=== PATIENT | male | born 1990 | race Caucasian/White ===

== ENCOUNTER 2016-10-04 10:18 | Emergency (ER) | payer OTHER ==
[~2016-10-04] VITALS: Ht 180.3 cm; Wt 72.6 kg
[~2016-10-04 10:18] MED LIST: DOXYCYCLINE MO100 MG PO
[2016-10-04 12:00] LABS: ABSOLUTE BASOPHIL COUNT 0.1 /CUMM (0.0-0.2); ABSOLUTE EOSINOPHIL COUNT 0.2 /CUMM (0.0-0.7); ABSOLUTE GRANULOCYTE CT 4.8 /CUMM (1.4-6.5); ABSOLUTE LYMPH COUNT 1.7 /CUMM (1.2-3.4); ABSOLUTE MONOCYTE COUNT 0.6 /CUMM (0.10-0.60); BASOPHIL % 0.9 % (0.0-2.0); EOSINOPHIL % 2.8 % (0-5); GRANULOCYTE % 65.5 % (42.2-75.2); HEMATOCRIT 47.5 % (42-52); MEAN CORPUSCULAR HGB CONC 34.1 G/DL (33.0-37.0); MEAN CORPUSCULAR VOLUME 85.1 FL (80.0-94.0); PLATELET COUNT 254 /CUMM (130-400); RBC DISTRIBUTION WIDTH 12.5 % (11.5-14.5); RED BLOOD CELL CT 5.59 /CUMM (4.70-6.10); WHITE BLOOD CELL COUNT 7.4 /CUMM (4.8-10.8)
--- NOTE | 2016-10-04 12:05 | ED SYNCOPE COMPLAINT ---
History of Present Illness General Chief Complaint: Dizziness Stated Complaint: FAINT, DIZZINESS Source: patient Exam Limitations: no limitations Vital Signs & Intake/Output Vital Signs & Intake/Output Vital Signs Date Time Temp Pulse Resp B/P B/P Pulse O2 O2 Flow FiO2 Mean Ox Delivery Rate 10/04 1411 97.1 73 18 111/59 98 Room Air 10/04 1124 98 Room Air Room Air 10/04 1026 96.0 100 20 155/76 98 Room Air Room Air Allergies Coded Allergies: NO KNOWN ALLERGIES (09/08/12) Reconcile Medications DOXYCYCLINE MONOHYDRATE (Doxycycline Monohydrate) 100 MG CAPSULE 1 TAB PO BID CELLULITITS Triage Note: PT TO ED WITH C/O "DIZZINESS WHICH IS NOT A NEW THING, I HAVE VERTIGO AND MIGRAINES, I HAVE TROUBLE REMEMBERING SIMPLE THINGS LIKE MY PIN CODES". Triage Nurses Notes Reviewed? yes Timing: single episode today Precipitating Factors: lightheadedness Loss of Consciousness: no loss of consciousness HPI: 26-year-old male comes into emergency room for further evaluation of feeling faint earlier today. Patient reports that he was holding his child when suddenly he felt very faint, nauseous, sweaty, with some associated chest pain. Patient reports he had a laid down. Symptoms lasted for about 5-10 minutes. Patient reports that this is previously happened to him in the past. Denies any vomiting. Patient also reported some blurry vision with the symptoms. Nothing seems to make the symptoms better or worse. Denies any other associated symptoms. Patient reports that this is been happened to him more frequently lately. He has had symptoms like this on and off for many years but never this severe. Past History Travel History Traveled to [place] past 21 day No Medical History Any Pertinent Medical History? 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 No Review of Systems Review of Systems Constitutional: Reports: see HPI. EENTM: Reports: see HPI. Respiratory: Reports: see HPI. Cardiovascular: Reports: see HPI. GI: Reports: no symptoms. Genitourinary: Reports: no symptoms. Musculoskeletal: Reports: no symptoms. Skin: Reports: no symptoms. Neurological/Psychological: Reports: see HPI. All Other Systems: Reviewed and Negative Physical Exam Physical Exam General Appearance: well developed/nourished, no apparent distress, alert, awake Head: atraumatic, normal appearance Eyes: Bilateral: normal appearance, PERRL, EOMI. Ears, Nose, Throat: normal pharynx, normal ENT inspection, hearing grossly normal Neck: normal inspection, full range of motion Respiratory: normal breath sounds, chest non-tender, no respiratory distress Cardiovascular: regular rate/rhythm Back: normal inspection Extremities: normal inspection, normal range of motion, no edema Psychiatric: awake, alert, oriented x 3 Cranial Nerves: normal hearing, normal speech, PERRL Coordination/Gait: normal finger to nose, normal gait Motor/Sensory: no motor/sensory deficits Skin: intact, normal color Core Measures ACS in differential dx? No CVA/TIA Diagnosis: No Severe Sepsis Present: No Septic Shock Present: No Progress Differential Diagnosis: AMI, aortic dissection, aortic valve, drug induced syncope, hyperventilation, orthostatic syncope, other valvular disease, pacemaker malfunction, pericardial tamponade, pulmonary embolus, seizure, sick sinus syndrome, subarachnoid hem., TIA/CVA, vasodepressor syncope, ventricular tach/fib Plan of Care: Orders Procedure Date/time Status Telemetry/Chipper Feeder 10/04 1205 Active D-DIMER 10/04 1128 Complete TROPONIN LEVEL 10/04 1127 Complete MAGNESIUM 10/04 1127 Complete COMPREHENSIVE METABOLIC PANEL 10/04 1127 Complete CBC WITHOUT DIFFERENTIAL 10/04 1127 Complete EKG 10/04 1127 Active Laboratory Tests 10/04/16 1310: D-Dimer < 200 10/04/16 1150: Anion Gap 11, Estimated GFR > 60, BUN/Creatinine Ratio 20.0, Glucose 86, Calcium 9.4, Magnesium 2.0, Total Bilirubin 1.3, AST 25, ALT 43, Alkaline Phosphatase 51 , Troponin I < 0.01, Total Protein 7.2, Albumin 4.4, Globulin 2.8, Albumin/ Globulin Ratio 1.6, CBC w Diff NO MAN DIFF REQ, RBC 5.59, MCV 85.1, MCH 29.0, RDW 12.5, MPV 7.0 L, Gran % 65.5, Lymphocytes % 23.1, Monocytes % 7.7, Eosinophils % 2.8, Basophils % 0.9, Absolute Granulocytes 4.8, Absolute Lymphocytes 1.7, Absolute Monocytes 0.6, Absolute Eosinophils 0.2, Absolute Basophils 0.1, PUBS MCHC 34.1 10/04/16 1128: Magnesium Cancelled Diagnostic Imaging: Viewed by Me: CT Scan. Discussed w/RAD: CT Scan. Radiology Impression: SERVICE DATE: 10/04/16 EXAM TYPE: CAT - CT HEAD WO IV CONTRAST EXAMINATION: CT HEAD WITHOUT CONTRAST CLINICAL INFORMATION: Near syncope, headaches. COMPARISON: None TECHNIQUE: Contiguous axial imaging was performed from the skull base to vertex without intravenous administration of contrast. DLP: 601 mGy-cm FINDINGS: There is no evidence of acute intracranial hemorrhage or territorial infarction. No abnormal mass effect or midline shift is seen. Baker to white matter differentiation is well preserved. No extra-axial fluid collections are identified. The ventricles are normal in size. There is no abnormal attenuation within the brain parenchyma. The osseous structures and soft tissues are normal. The mastoid air cells and visualized portions of the paranasal sinuses are well aerated. Incidental note is made of pneumatization of the petrous apices which appear clear. IMPRESSION: No acute intracranial pathology. 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 Patient is in no apparent distress. Nontoxic appearing. No acute findings in the emergency room. Reevaluated multiple times. Sugar decision making. Long conversation with patient about plan of care. Patient told that he needs close follow-up with a primary care doctor. Understands and agrees a plan of care. Departure Departure Disposition: HOME OR SELF CARE Condition: Stable Clinical Impression Primary Impression: Near syncope Referrals: PATIENT HAS NO PRIMARY CARE DR (PCP/Family) Additional Instructions: Follow-up with primary care Dr. provided. You will require further evaluation for your symptoms. The cause is unclear at this time. Please go over all results of today's visit with your primary care doctor. Contact your primary care doctor to let them know you were here in the emergency room. There may be nonspecific findings which may not be related to your visit today here in the emergency room but may require further evaluation and chronic monitoring by your primary care doctor. If you had a laceration today the chance of foreign body always remains. You should follow-up with your primary care doctor for recheck in 3-5 days for a wound check. If you had an x-ray done there is a chance that a fracture could have been missed on initial read and you should follow-up with your primary care doctor for repeat x-rays if symptoms persist. If your blood pressure was elevated here in the emergency room please have rechecked by her primary care doctor within the next 48 hours by your primary care doctor. If you were prescribed a narcotic here in the emergency room or any type of controlled substances you're not allowed to drive while taking this medication or operate any type of heavy machinery. Narcotics can make you feel lightheaded dizziness nausea and can cause constipation. You may need to [employer] a stool softener. Thank you for choosing [facility] emergency room. Please return to the emergency room immediately if you have any other concerns worsening of symptoms. Departure Forms: Customer Survey General Discharge Information
--- NOTE | 2016-10-04 13:39 | CT SCAN REPORT ---
EXAMINATION: CT HEAD WITHOUT CONTRAST CLINICAL INFORMATION: Near syncope, headaches. COMPARISON: None TECHNIQUE: Contiguous axial imaging was performed from the skull base to vertex without intravenous administration of contrast. DLP: 601 mGy-cm FINDINGS: There is no evidence of acute intracranial hemorrhage or territorial infarction. No abnormal mass effect or midline shift is seen. Baker to white matter differentiation is well preserved. No extra-axial fluid collections are identified. The ventricles are normal in size. There is no abnormal attenuation within the brain parenchyma. The osseous structures and soft tissues are normal. The mastoid air cells and visualized portions of the paranasal sinuses are well aerated. Incidental note is made of pneumatization of the petrous apices which appear clear. IMPRESSION: No acute intracranial pathology.
[2016-10-04 14:11] VITALS: BP 111/59
== END 2016-10-04 14:44 ==
LOC: ERH 10:18
PROVIDERS: Physician Assistant Medical
DX: R55 Syncope and collapse (principal); R07.9 Chest pain, unspecified; R11.0 Nausea
CPT/HCPCS: 93005; 93010